=== PATIENT | female | born 1950 | race Caucasian/White ===

== ENCOUNTER → 2024-10-28 15:42 | Outpatient (REF) | payer MEDICARE, OTHER, SELFPAY | LOC: HWWDC 15:42 | PROVIDERS: ATTENDING PHYSICIAN Obstetrics & Gynecology Gynecology; FAMILY PHYSICIAN Family Medicine | DX: Z12.31 Encounter for screening mammogram for malignant neoplasm of breast (principal) | CPT/HCPCS: 77063; 77067 ==

== ENCOUNTER → 2025-10-12 16:07 | Outpatient (REF) | payer MEDICARE, OTHER, SELFPAY ==
[2025-10-12 18:26] LABS: TSH 0.37 uIU/ml (0.47-4.68)
== END ==
LOC: REG 16:07
PROVIDERS: ATTENDING PHYSICIAN Internal Medicine Endocrinology, Diabetes & Metabolism; FAMILY PHYSICIAN Family Medicine
DX: E03.9 Hypothyroidism, unspecified (principal)
CPT/HCPCS: 36415; 84439; 84443